=== PATIENT | female | born 1975 | race Caucasian/White ===

== ENCOUNTER 2017-04-26 13:30 | Emergency (ER) | payer MEDICAID ==
[2017-04-26 13:46] VITALS: BMI 40.7
[2017-04-26 13:56] VITALS: RESP 18
[2017-04-26 15:04] LABS: BASO # 0.1 K/uL (0.0-0.2); BASO % 0.7 % (0.0-2.0); EOS # 0.2 K/uL (0.0-0.7); EOS % 2.1 % (0.0-4.0); HEMATOCRIT 42.6 % (34.0-47.0); LYMPH # 3.4 K/uL (1.0-4.3); LYMPH % 43.8 % (20.0-40.0); MEAN CELL VOLUME 86.3 fL (81.0-99.0); MEAN CORPUSCULAR HEMOGLOBIN 29.5 pg (27.0-31.0); MEAN CORPUSCULAR HGB CONC 34.2 g/dL (33.0-37.0); MEAN PLATELET VOLUME 6.7 fL (7.2-11.7); MONO # 0.5 K/uL (0.0-0.8); MONO % 6.7 % (0.0-10.0); NRBC % 0.1 % (0.0-2.0); RED CELL DISTRIBUTION WIDTH 13.5 % (11.5-14.5); WHITE BLOOD COUNT 7.7 K/uL (4.8-10.8)
[2017-04-26 15:11] LABS: CHLORIDE 101 mmol/L (98-107); SODIUM 134 mmol/L (132-148)
[2017-04-26 15:14] LABS: ALB/GLOB RATIO 1.1 (1.0-2.1); ALKALINE PHOSPHATASE 68 U/L (38-126); ALT/SGPT 23 U/L (9-52); AST/SGOT 37 U/L (14-36); BILIRUBIN,TOTAL 1.7 mg/dL (0.2-1.3); BLOOD UREA NITROGEN 5 mg/dL (7-17); CARBON DIOXIDE 21 mmol/L (22-30); GFR AFRICAN-AMERICAN > 60; GLUCOSE,RANDOM 231 mg/dL (65-105); TOTAL PROTEIN 8.5 g/dL (6.3-8.3)
[2017-04-26 15:15] LABS: CALCIUM 8.9 mg/dl (8.6-10.4)
--- NOTE | 2017-04-26 15:51 | C.PDOC ---
History Of Present Illness 42 year old female, with a history of Diabetes, presents to the ED with complaints itchy rash to the right anterior virgen for four months. 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 Rash has continued to persist. She notes she used to take Metformin for her diabetes but has not taken it for four months because her previous doctor would not give her a prescription. Patient mentions she is between doctors. She denies fever, chills , leg swelling, polyuria, polydipsia, history of allergies, or other complaints. Time Seen by Provider: 04/26/17 13:58 Chief Complaint (Nursing): Abnormal Skin Integrity History Per: Patient History/Exam Limitations: no limitations Onset/Duration Of Symptoms: Persistent (4 months ) Current Symptoms Are (Timing): Still Present Location Of Injury: Right: Leg (anterior virgen ) Quality Of Symptoms: Itching. denies: Swollen, Draining Recent travel outside of the [place]: No Past Medical History Reviewed: Historical Data, Nursing Documentation, Vital Signs Vital Signs: Last Vital Signs Temp 98.5 F 04/26/17 16:08 Pulse 88 04/26/17 16:08 Resp 18 04/26/17 16:08 BP 142/85 04/26/17 16:08 Pulse Ox 100 04/26/17 16:08 - Medical History PMH: Asthma, Diabetes Family History: States: Unknown Family Hx - Social History Hx Tobacco Use: Yes Hx Alcohol Use: No Hx Substance Use: No - Immunization History Hx Tetanus Toxoid Vaccination: No Hx Influenza Vaccination: No Hx Pneumococcal Vaccination: No Review Of Systems Constitutional: Negative for: Fever, Chills Respiratory: Negative for: Cough, Shortness of Breath Skin: Positive for: Rash Neurological: Negative for: Weakness, Numbness Physical Exam - Physical Exam Appears: Non-toxic, No Acute Distress Skin: Warm, Dry, Rash (erythematus petechial rash to anterior right virgen with satellite lesions) Head: Atraumatic, Normacephalic Eye(s): bilateral: Normal Inspection, PERRL, EOMI Oral Mucosa: Moist Throat: Normal, No Erythema, No Exudate Neck: Normal ROM, Supple Chest: Symmetrical, No Deformity, No Tenderness Cardiovascular: Rhythm Regular, No Murmur Respiratory: No Rales, No Rhonchi, No Wheezing, Other (clear to auscultation bilaterally ) Neurological/Psych: Oriented x3 ED Course And Treatment - Laboratory Results Result Diagrams: 04/26/17 14:58 04/26/17 14:58 O2 Sat by Pulse Oximetry: 98 (RA) Progress Note: Accucheck and blood work were ordered. Medical Decision Making Medical Decision Making: Labs reviewed. Based on history, exam and lab results, plan will be for outpt f/ u with pmd and with dermatology referral. Disposition - Disposition Disposition: HOME/ ROUTINE Disposition Time: 15:50 Condition: STABLE Additional Instructions: Follow up with your pmd / dermatology referral in 2 days for re-evaluation and follow up. Take medication as prescribed. Return to the ER at any time for any new or worsening symptoms. 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 - Scribe Statement The provider has reviewed the documentation as recorded by the Scribbk [place] All medical record entries made by the Juancarlosibbk were at my direction and personally dictated by me. I have reviewed the chart and agree that the record accurately reflects my personal performance of the history, physical exam, medical decision making, and the department course for this patient. I have also personally directed, reviewed, and agree with the discharge instructions and disposition.
[2017-04-26 16:08] VITALS: BP 142/85; PULSE 88; TEMP 98.5
[2017-04-26 19:06] VITALS: O2SAT 98
== END 2017-04-26 16:10 | disposition home or self-care (01) ==
LOC: C.ER 13:30
DX: B35.4 Tinea corporis (principal); R21 Rash and other nonspecific skin eruption; E11.9 Type 2 diabetes mellitus without complications; Z87.891 Personal history of nicotine dependence

== ENCOUNTER 2017-07-13 12:30 | Emergency (ER) | payer MEDICAID ==
[2017-07-13 12:50] VITALS: BMI 39.1
[2017-07-13 12:53] VITALS: BP 118/78; PULSE 86; RESP 18; TEMP 98.6; O2SAT 98
[2017-07-13] MEDS ORDERED: Naproxen 550 mg Tab PO STA (13:59)
[2017-07-13] MEDS ORDERED: Naproxen 550 mg Tab PO ONE (14:12)
--- NOTE | 2017-07-13 14:27 | RAD ---
PROCEDURE: Radiographs of the Chest and Right Ribs. HISTORY: Pain COMPARISON: None available. TECHNIQUE: Frontal radiograph of the chest and multiple oblique radiographs of the right ribs were obtained. FINDINGS: RIGHT RIBS: No fracture or focal lesion visualized. LUNGS: Clear. PLEURA: No pneumothorax or pleural fluid. CARDIOVASCULAR: Normal sized heart. No pulmonary vascular congestion. OTHER FINDINGS: None. IMPRESSION: Unremarkable radiographs of the chest and right ribs. No right rib fracture.
--- NOTE | 2017-07-13 15:03 | C.PDOC ---
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 Time Seen by Provider: 07/13/17 13:47 Chief Complaint (Nursing): Rib Injury History Per: Patient Onset/Duration Of Symptoms: Days (3), Sudden Onset Current Symptoms Are (Timing): Still Present Severity: Moderate Quality: "Pain" Associated Symptoms: denies: Nausea, Dyspnea, Diaphoresis, Syncope Modifying Factors: Other Indicated Below Exacerbating Factors: Turning, Movement, Deep Breathing Alleviating Factors: Rest Additional History Per: Prior Records Past Medical History Reviewed: Historical Data, Nursing Documentation, Vital Signs Vital Signs: Last Vital Signs Temp 98.6 F 07/13/17 12:50 Pulse 86 07/13/17 12:50 Resp 18 07/13/17 12:50 BP 118/78 07/13/17 12:50 Pulse Ox 98 07/13/17 12:50 - Medical History PMH: Asthma, Diabetes Family History: States: Unknown Family Hx - Social History Hx Tobacco Use: Yes Hx Alcohol Use: No Hx Substance Use: No - Immunization History Hx Tetanus Toxoid Vaccination: No Hx Influenza Vaccination: No Hx Pneumococcal Vaccination: No Review Of Systems Except As Marked, All Systems Reviewed And Found Negative. Constitutional: Negative for: Fever, Weakness Respiratory: Negative for: Shortness of Breath, Hemoptysis Gastrointestinal: Negative for: Vomiting, Abdominal Pain Genitourinary: Negative for: Dysuria Musculoskeletal: Negative for: Neck Pain, Leg Pain Skin: Negative for: Rash Neurological: Negative for: Weakness, Numbness Physical Exam - Physical Exam Appears: Non-toxic, No Acute Distress Skin: Normal Color, Warm, Dry, No Rash Head: Atraumatic, Normacephalic Eye(s): bilateral: Normal Inspection, PERRL, EOMI Neck: Normal ROM, Supple Chest: Symmetrical, No Deformity, Tenderness (right chest wall), No Ecchymosis, No Subcutaneous Emphysema Cardiovascular: Rhythm Regular Respiratory: Normal Breath Sounds, No Accessory Muscle Use Gastrointestinal/Abdominal: Soft, No Tenderness Back: No CVA Tenderness, No Vertebral Tenderness Extremity: Normal ROM, No Pedal Edema, No Calf Tenderness Neurological/Psych: Oriented x3, Normal Motor, Normal Sensation ED Course And Treatment O2 Sat by Pulse Oximetry: 98 Pulse Ox Interpretation: Normal - Other Rad Right rib series X-Ray: Viewed By Me, Read By Radiologist Interpretation: IMPRESSION: Unremarkable radiographs of the chest and right ribs. No right rib fracture. Reassessment Condition: Improved Medical Decision Making Medical Decision Making: PERC rule negative. Disposition Counseled Patient/Family Regarding: Studies Performed, Diagnosis, Need For Followup, Rx Given - Disposition Referrals: Shorty ATKINSON,Jacques Anderson MD [Medical Doctor] - Disposition: HOME/ ROUTINE Disposition Time: 15:05 Condition: IMPROVED Additional Instructions: Follow up with your doctor for further evaluation and treatment. Return to the ER if you develop shortness of breath, worsening of symptoms or if you have any other concerns. Prescriptions: Naproxen [Naprosyn] 1 tab PO BID PRN #20 tab PRN Reason: Pain Instructions: Chest Wall Pain (ED) Forms: [facility] (Guatemalan), Work Excuse - Clinical Impression Clinical Impression: Sprain of chest wall
== END 2017-07-13 15:14 | disposition home or self-care (01) ==
LOC: C.ER 12:30
DX: S29.011A Strain of muscle and tendon of front wall of thorax, initial encounter (principal); X50.0XXA Overexertion from strenuous movement or load, initial encounter; Y93.F2 Activity, caregiving, lifting; Y92.89 Other specified places as the place of occurrence of the external cause; Y99.8 Other external cause status

== ENCOUNTER 2017-09-01 16:20 | Emergency (ER) | payer MEDICAID ==
[2017-09-01 16:20] VITALS: BMI 39.1
[2017-09-01 16:35] VITALS: BP 150/95; PULSE 88; RESP 20; TEMP 98.6; O2SAT 99
--- NOTE | 2017-09-01 17:12 | C.PDOC ---
History Of Present Illness 42 year old female presents to the ED for evaluation of right posterior shoulder and back pain which began earlier today. Patient reports she was wearing a rashida-cross bra that was very tight. Patient notes she also felt a sensation of pins and needles down her arm. She denies falls, trauma/injury. Contrary to triage, patient denies thumb pain. Time Seen by Provider: 09/01/17 16:48 Chief Complaint (Nursing): Finger,Hand,&Wrist History Per: Patient History/Exam Limitations: no limitations Onset/Duration Of Symptoms: Hrs Current Symptoms Are (Timing): Still Present Quality: "Pain" Additional History Per: Patient Past Medical History Reviewed: Historical Data, Nursing Documentation, Vital Signs Vital Signs: Last Vital Signs Temp 98.6 F 09/01/17 16:31 Pulse 88 09/01/17 16:31 Resp 20 09/01/17 16:31 BP 150/95 H 09/01/17 16:31 Pulse Ox 99 09/01/17 22:07 - Medical History PMH: Asthma, Diabetes Surgical History: No Surg Hx Family History: States: Unknown Family Hx - Social History Hx Tobacco Use: Yes Hx Alcohol Use: No Hx Substance Use: No - Immunization History Hx Tetanus Toxoid Vaccination: No Hx Influenza Vaccination: No Hx Pneumococcal Vaccination: No Review Of Systems Musculoskeletal: Positive for: Shoulder Pain (right), Back Pain Neurological: Negative for: Weakness, Numbness Physical Exam - Physical Exam Appears: Non-toxic, No Acute Distress Skin: Normal Color, Warm, Dry Head: Atraumatic, Normacephalic Eye(s): bilateral: Normal Inspection Oral Mucosa: Moist Neck: Supple Chest: Symmetrical, No Deformity, No Tenderness Cardiovascular: Rhythm Regular, No Murmur Respiratory: Normal Breath Sounds, No Rales, No Rhonchi, No Wheezing Back: Muscle Spasm (right trapezius muscle ) Extremity: Normal ROM, No Tenderness, Capillary Refill (less than 2 seconds ), No Deformity, No Swelling Neurological/Psych: Oriented x3, Normal Speech, Normal Cognition Gait: Steady ED Course And Treatment O2 Sat by Pulse Oximetry: 99 (on RA) Pulse Ox Interpretation: Normal Medical Decision Making Medical Decision Making: Progress: Flexeril PO administered. On re-exam, the patient reports improvement of symptoms. Lungs are CTA, heart is RRR, abdomen is soft, non-tender and tolerating PO well. Ambulatory in the ED with steady gait. Follow up with the medical doctor with 1-2 days. return if worsened. Disposition - Disposition Referrals: [facility] [Outside] Disposition: HOME/ ROUTINE Disposition Time: 17:09 Condition: GOOD Additional Instructions: Follow up with the medical doctor within 1-2 days. Return if worsened. 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 - Scribe Statement The provider has reviewed the documentation as recorded by the Scribe (Gabby Fernandez) All medical record entries made by the Scribe were at my direction and personally dictated by me. I have reviewed the chart and agree that the record accurately reflects my personal performance of the history, physical exam, medical decision making, and the department course for this patient. I have also personally directed, reviewed, and agree with the discharge instructions and disposition.
== END 2017-09-01 17:22 | disposition home or self-care (01) ==
LOC: C.ER 16:20
DX: M62.838 Other muscle spasm (principal); E11.9 Type 2 diabetes mellitus without complications; Z72.0 Tobacco use

== ENCOUNTER 2018-10-07 09:11 | Emergency (ER) | payer MEDICAID ==
[2018-10-07 09:12] VITALS: BMI 39.1
[2018-10-07 09:28] VITALS: RESP 18
--- NOTE | 2018-10-07 11:45 | RAD ---
Right clavicle two views HISTORY: Pain and swelling. COMPARISON: None available. FINDINGS: Moderate narrowing of the right acromioclavicular joint space with joint space narrowing and bony hypertrophy. Mild degenerative changes of the visualized right glenohumeral joint space. Impression: Moderate narrowing of the right acromioclavicular joint space with joint space narrowing and bony hypertrophy. Mild degenerative changes of the visualized right glenohumeral joint space. If pain persists, consider correlation with MRI.
[2018-10-07 14:40] VITALS: BP 143/80; PULSE 72; TEMP 98.3; O2SAT 98
--- NOTE | 2018-10-07 18:20 | C.PDOC ---
History Of Present Illness 43 y/o female who is otherwise well, presents to the ED c/o pain and swelling to right clavicle (where it inserts into the sternum) x 4-5 days. Patient denies known trauma to the area. 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 Patient noticed visible swelling to the area and is concerned about a mass. She denies fever, chills, nausea, vomiting. Patient is right-handed. Time Seen by Provider: 10/07/18 09:19 Chief Complaint (Nursing): Upper Extremity Problem/Injury History Per: Patient History/Exam Limitations: no limitations Onset/Duration Of Symptoms: Days (4-5) Current Symptoms Are (Timing): Still Present Additional History Per: Patient Past Medical History Reviewed: Historical Data, Nursing Documentation, Vital Signs Vital Signs: Last Vital Signs Temp 98.3 F 10/07/18 11:30 Pulse 72 10/07/18 11:30 Resp 18 10/07/18 11:30 BP 143/80 10/07/18 11:30 Pulse Ox 98 10/07/18 11:30 - Medical History PMH: Asthma, Diabetes Surgical History: No Surg Hx Family History: States: Unknown Family Hx - Social History Hx Tobacco Use: Yes Hx Alcohol Use: No Hx Substance Use: No - Immunization History Hx Tetanus Toxoid Vaccination: No Hx Influenza Vaccination: No Hx Pneumococcal Vaccination: No Review Of Systems Constitutional: Negative for: Fever, Chills Gastrointestinal: Negative for: Nausea, Vomiting Skin: Positive for: Other (right clavicle swelling and pain, atraumatic ) Physical Exam - Physical Exam Appears: Non-toxic, No Acute Distress Skin: Normal Color, Warm, Dry Head: Atraumatic, Normacephalic Chest: Symmetrical, No Deformity, Tenderness (over right clavicle ) Extremity: Normal ROM (right upper extremity ), Capillary Refill (less than 2 seconds ), Swelling (right claviclular area ) Pulses: Left Radial: Normal, Right Radial: Normal Neurological/Psych: Normal Speech, Normal Cognition, Normal Motor, Normal Sensation ED Course And Treatment O2 Sat by Pulse Oximetry: 98 (on RA) Pulse Ox Interpretation: Normal Medical Decision Making Medical Decision Making: Right clavicle XR ordered and reviewed. Results are unremarkable. Pt given Tylenol and Motrin for pain, reports sx have now resolved. Patient is resting comfortably, and is in no acute distress. Patient was instructed to follow up with PMD in 1-2 days for further evaluation. Disposition Counseled Patient/Family Regarding: Studies Performed, Diagnosis - Disposition Disposition: HOME/ ROUTINE Disposition Time: 11:30 Condition: STABLE Forms: [facility] (Yemeni) - Clinical Impression Clinical Impression: Sprain - Scribe Statement The provider has reviewed the documentation as recorded by the Scribe (Gabby Fernandez) Provider Attestation: All medical record entries made by the Scribe were at my direction and personally dictated by me. I have reviewed the chart and agree that the record accurately reflects my personal performance of the history, physical exam, medical decision making, and the department course for this patient. I have also personally directed, reviewed, and agree with the discharge instructions and disposition.
== END 2018-10-07 11:30 | disposition home or self-care (01) ==
LOC: C.ER 09:11
DX: T14.8XXA Other injury of unspecified body region, initial encounter (principal); X58.XXXA Exposure to other specified factors, initial encounter; E11.9 Type 2 diabetes mellitus without complications; Z72.0 Tobacco use